=== PATIENT | female | born 1945 | race Caucasian/White ===

== ENCOUNTER → 2020-11-07 12:55 | Outpatient (CLI) | payer OTHER, SELFPAY ==
[2020-11-07 15:53] LABS: COVID19 -Nasal RAPID Negative (Negative)
== END ==
PROVIDERS: Referring Provider Physician Assistant; Visit Provider Physician Assistant
DX: Z01.812 Encounter for preprocedural laboratory examination (principal); Z20.822 Contact with and (suspected) exposure to COVID-19
CPT/HCPCS: 87635

== ENCOUNTER 2020-11-08 09:05 | Day surgery (SDC) | payer OTHER, SELFPAY ==
[2020-11-02 16:24] VITALS: BP 133/58; PULSE 73; RESP 16; TEMP 36.8; O2SAT 97
[2020-11-03 09:17] VITALS: BMI 35.9
[2020-11-08] VITALS (12 sets, daily range): BP systolic 122–150; BP diastolic 49–77; PULSE 50–79; RESP 12–22; TEMP 35.7–36.8; O2SAT 92–99; BMI 35.9
--- NOTE | 2020-11-08 06:30 | DI.RAD.S_ITS ---
PROCEDURE: XR KNEE RT 1TO2V INDICATIONS: right TKA TECHNIQUE: 2 view(s) of the knee acquired. COMPARISON: [facility], CR, XR KNEE ARTHRITIC SERIES BI, 06/09/2020, 15:42. FINDINGS: Bones: Patient is status post knee joint arthroplasty. Hardware components are in expected positions. Visualized bony structures are intact. Soft tissues: Overlying postoperative changes are noted. IMPRESSION: Expected appearance of the right total knee arthroplasty. Dictated by: Bladimir Morgan M.D. on 11/08/2020 at 16:20 Approved by: Bladimir Morgan M.D. on 11/08/2020 at 16:20
[2020-11-08] MEDS: LACTATED RINGERS 1,000 ML 42 ML IV (09:25)
[2020-11-08] MEDS: PREGABALIN 75 MG CAPSULE PO (09:26)
[2020-11-08] MEDS: CELECOXIB 200 MG CAPSULE PO (09:26)
[2020-11-08] MEDS: ACETAMINOPHEN 325 MG TABLET 975 MG PO (09:26)
[2020-11-08] MEDS: VANCOMYCIN 1,000 MG/200 ML PIGGYBACK 200 MG IV (11:01)
--- NOTE | 2020-11-08 11:28 | PM.PREOP ---
Pre-operative Note COVID-19 COVID-19 status: Negative Interval Note History & Physical reviewed/Exam performed by Physician: Yes Changes to H&P: No
--- NOTE | 2020-11-08 11:28 | PM.OP.1 ---
Operative Date/Time/Diagnoses Date of procedure: 11/08/20 Time of procedure: 11:59 Pre-op diagnosis: Right total knee arthroplasty Post-op diagnosis: same Procedure & Clinicians Procedure: Right total knee arthroplasty Same procedure as scheduled: Yes Indications: The patient has had progressively worsening right knee pain with radiographic changes consistent with arthritis. Non-operative management has failed and the patient has requested total knee replacement. The risks, benefits and alternatives to surgery were discussed with the patient prior to proceeding. Risks discussed included, but were not limited to, failure to relieve pain, stiffness, infection, nerve damage, deep venous thrombosis, pulmonary embolism, stroke, coma, heart attack, permanent paralysis and , as well as the potential need for eventual revision of the prosthetic. Surgeon: [employer] Learning Support Teacher: Dez Wilkerson Anesthesia Type: General and Spinal Operative Notes Findings: Severe right knee osteoarthritis, good stability Closure Type: primary Specimen(s): none sent Prosthetic devices, grafts, tissues, transplants, or devices: [facility] BCS 2 size 32 by 7-1/2 mm patella, size 4 tibia, size 5 femur, +9 poly Applied: drain(s) Estimated Blood Loss (mL): 250 Blood products transfused: none Tourniquet time (min): 93 Procedure in detail: The patient was seen in the pre-operative area, where the patient identified the right knee as the operative site and this was marked with my initials. The patient received pre-operative antibiotics, and was taken to the operating room and placed on the operative table in the supine position. After satisfactory anesthesia, a multimedia teacher out was performed. The right leg was encircled with a tourniquet about the proximal thigh, and the leg was prepared from the toes to the tourniquet with ChloroPrep in the usual fashion and draped through sterile drapes. The leg was elevated and exsanguinated with Eschmark bandage and the tourniquet inflated to [250] mmHg pressure. The knee was approached through an approximately 18 cm incision centered over the patella and carried into the knee through a medial parapatellar arthrotomy. A portion of the medial and lateral meniscus was resected. Soft tissue was carefully mobilized around the patella the patella was measured with a caliper. Bone was resected from the patella and the patellar height was reconstituted with up an appropriate sized patellar component. A cover was then placed on the patella. A small amount of additional medial and lateral meniscus was resected. The distal femur was cut at 5?. A [+2] cut was used. It looked like an appropriate distal femoral cut and the cut was made without difficulty. An extramedullary guide was used for the tibial cut. 10 mm was resected off the least affected side.The tibia was prepared. The rotation was assessed. The patient was placed in extension residual medial and lateral meniscus as well as any residual bone was carefully resected. [No] additional tibia was resected. Hemostasis was achieved especially posteriorly. Additional local was injected into the posterior capsule. The extension gap was assessed and additional releases for gap balancing were performed as necessary. It was checked with the gap ice rink attendant. The femoral component was trial was placed and the notch was finished. The rotation was assessed and the appropriate size femoral guide was placed on the distal femur and finishing cuts were made. There is no evidence of notching. The anterior, posterior and chamfer cuts were then made. The posterior osteophytes and soft tissues were then removed. The posterior capsule was injected with part of a mixture of 60 ml 0.25% Marcaine mixed with 20 ml Exparel for post operative pain control. The remainder of this mixture was injected into the capsule and subcutaneous tissues during cement curing. The tibial and femoral components were then placed and the knee placed through a range of motion. Range of motion was [0-130], with good stability throughout the range. The trials were then removed, and the tibia was finished. The bone was prepared with pulsatile lavage, and dried with a sponge. Cement was applied and the final prosthetics placed. Excess cement was removed during and after cement curing. A brief Betadine soak was performed. After confirming there was no extruded cement posteriorly, the final tibial insert was placed. The knee was copiously irrigated and the tourniquet deflated. Hemostasis was obtained with the bovie. A drain was placed and brought out superolaterally. The capsule was closed with interrupted nonabsorbable suture. The subcutaneous layer was closed with barbed sutures, and the skin with a running 3-0 V-Lock suture and Surgical glue. An Aquacel Ag dressing was applied and the patient was taken to recovery having tolerated the procedure well. Complications: none Post-operative Condition: stable Disposition: Acute Care Plan for aftercare: The patient will be maintained on a standard total knee replacement protocol with weight bearing as tolerated. The patient will receive aspirin and sequential compression devices for DVT prophylaxis. The patient will be discharged home when safe for the home environment.
[2020-11-08] MEDS: CEFAZOLIN 1 GM VIAL 2 GM IV (12:30)
[2020-11-08] MEDS: TRANEXAMIC ACID 1,000 MG VIAL 2000 MG INJ ×2 (12:55→14:43)
--- NOTE | 2020-11-08 13:04 | SUR.OPER ---
Supine on padded OR bed. Pillow under head, arms secured on padded armboards <90 degree abduction. Safety belt across torso. Non-operative leg secured with tape over blanket over lower leg. Operative leg secured in DeMayo/Marco A positioner. Foam padded brace at thigh of operative leg.
[2020-11-08] MEDS: BUPIVACAINE LIPOSOME 266 MG/20 ML VIAL INJ (13:11)
[2020-11-08] MEDS: SODIUM CHLORIDE IRRIG SOLUTION 250 ML, POVIDONE-IODINE SPONGE STICKS 1 APPLIC IRR (13:13)
[2020-11-08] MEDS: BUPIVACAINE 0.25% (PF) VIAL 30 ML INJ (13:14)
[2020-11-08] MEDS: EPINEPHrine 1 MG/ML SUBCUT (13:15)
[2020-11-08] MEDS: SODIUM CHLORIDE 0.9% 1,000 ML 84 ML IV (14:11)
[2020-11-08] MEDS: OXYCODONE IR 5 MG TABLET PO ×2 (15:44→16:23)
--- NOTE | 2020-11-08 15:55 | SUR.PREOP ---
Due to time constraints, this very pleasant womens procedure was reschd until 11/15 per pts request.
--- NOTE | 2020-11-08 16:40 | SUR.PHASEI ---
REPORT GIVEN TO KEN SOLIMAN RN WHO GREETED PATIENT IN RM 217 AT BEDSIDE FOR FACE TO FACE HANDOFF. ALL QUESTIONS ANSWERED TO SATISFACTION. NOTIFIED HER THAT HV DUE TO BE UNCLAMPED AT 1730. LEFT PATIENT IN STABLE CONDITION WITH BED DOWN IN LOCKED POSITION, W/ SCD'S ON, CALL LIGHT IN REACH, AND VSS.
[2020-11-08] MEDS: LOSARTAN 50 MG TABLET PO (21:16)
[2020-11-08] MEDS: ATORVASTATIN 20 MG TABLET 10 MG PO (21:17)
--- NOTE | 2020-11-08 23:34 | PC.NURSE ---
Pt stable post op course. Dsg to left knee CDI HL intact/patent. Denies discomfort at this time. Sha vac intact/patent. Satisfactory post op course. Call light w/in reach. pt calls appropriately for needs. Continue w/ plan of care.
[2020-11-09 00:30] VITALS: BP 143/68; PULSE 59; RESP 14; TEMP 36.4; O2SAT 95
[2020-11-09] MEDS: OXYCODONE IR 5 MG TABLET PO ×3 (01:53→12:38)
[2020-11-09 04:00] VITALS: BP 149/69; PULSE 51; RESP 20; TEMP 36.3; O2SAT 100
--- NOTE | 2020-11-09 07:29 | P.PN_ITS ---
Subjective Subjective Date Patient Seen: 11/09/20 Time Patient Seen: 07:29 Interval history: She notes she is doing well and has minimal pain. She has been up to the bathroom a few times with nursing staff. Her pain is well controlled with pain medications. Exam Vital Signs (past 8 hours): - 11/09/20 00:30 11/09/20 04:00 Temperature 97.5 F L 97.4 F L Pulse Rate 59 L 51 L Respiratory Rate 14 20 Blood Pressure 143/68 H 149/69 H Pulse Oximetry 95 100 Oxygen Delivery Method Room Air Oxygen Flow Rate 0 Narrative Exam Narrative: Alert and oriented, able to do an active straight leg raise, calfs are soft bilaterally, minimal pain with gentle range of motion in her knee, her leg is neurologically intact distally. 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 Were going to mobilize her with physical therapy today. Take her Truong wrap off and discontinue her drain. She can be discharged to home today.
[2020-11-09 08:00] VITALS: BP 136/63; PULSE 50; RESP 14; TEMP 36.4; O2SAT 99
[2020-11-09] MEDS: hydroCHLOROthiazide 25 MG TABLET PO (10:01)
[2020-11-09] MEDS: CEFAZOLIN 1 GM VIAL 2 GM IV (10:01)
[2020-11-09] MEDS: MELOXICAM 7.5 MG TABLET 15 MG PO (10:01)
[2020-11-09] MEDS: AMLODIPINE 5 MG TABLET PO (10:20)
--- NOTE | 2020-11-09 10:45 | PT.IIE ---
Current Diagnoses Unilateral primary osteoarthritis, right knee (11/08/20) Surgery Performed Operation Date: 11/08/20 11:15 Actual Procedures p Total Knee Arthroplasty(Right) - Sharon Alicea MD Surgical History (Last Updated 11/03/20 @ 09:11 by Nancy Katz, RN) History of lumbar fusion (~2010) Hx of bilateral cataract extraction (05/2020) Medical History (Last Updated 11/03/20 @ 09:11 by Nancy Katz, RN) Anxiety HLD (hyperlipidemia) HTN (hypertension) CHANDLER on CPAP Osteoarthritis Pre-diabetes RLS (restless legs syndrome) Vertigo Physical Therapy Inpatient Evaluation/Re-Eval M1 PT/OT-IP Prior Functional Status Start: 11/09/20 13:07 Freq: NEEDED Status: Active Protocol: Document 11/09/20 10:45 DLM (Rec: 11/09/20 13:20 DLM [id number]) Medical Review Prior Functional Status Medical History Reviewed Yes Diet/Fluid Consistency Regular Communication WNL Mobility and Gait Independent without device Activities of Daily Living and IADL's Independent Prior Functional Level (Other details) plans to have friend stay with her over-night to help after discharge Social History Household Members none Living Arrangements Apartment/Condo Number of Floors (Floors) One Floor Number of Stairs To Enter/Railing? elevator to her condo on second floor Home Environment High Toilet,Walk in Shower Home Equipment Four Wheel Walker Employment Status Retired M2 PT-IP Current Condition Start: 11/09/20 13:07 Freq: NEEDED Status: Active Protocol: Document 11/09/20 10:45 DLM (Rec: 11/09/20 13:20 DLM [id number]) Physical Therapy Current Condition Current Condition Evaluation Date 11/09/20 Treatment Diagnosis right TKA, impaired gait and mobility Onset Date 11/08/20 Weight Bearing Status Weight Bearing Status Weight Bear as Tolerated M3 PT-IP Subjective Start: 11/09/20 13:07 Freq: NEEDED Status: Active Protocol: Document 11/09/20 10:45 DLM (Rec: 11/09/20 13:20 DLM [id number]) Subjective Physical Therapy Visit Type Type Initial Evaluation Visit Start Time 09:45 Visit Stop Time 10:45 Total Visit Minutes 60 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 Patient Goals Discharge home today Therapy Pain Assessment Pain When Pain Assessed After Treatment Pain Present Pain Present Pain Reported Location right knee Intensity 4 Scale Used Numeric (0 - 10) Description With Movement Pain Behaviors Wincing Pain Management Techniques Apply Cold,Elevation,Timing of Activity with Medications M4 PT-IP Mobility and Gait Start: 11/09/20 13:07 Freq: NEEDED Status: Active Protocol: Document 11/09/20 10:45 DLM (Rec: 11/09/20 13:20 DLM [id number]) PT-Bed Mobility Assessment Supine to Sit Supine to Sit Independent Sit to Supine Sit to Supine Independent Scooting Scooting to Edge of Bed Independent Scooting Up and Down in Bed Independent PT-Transfer Assessment Sit to and From Stand Sit to and from Stand Independent,Use of Upper Extremities Equipment Transfer Assistive Device Gait Belt,Front Wheeled Walker Transfers Transfer Destination Bed,Chair Transfer Technique Stand Step Pivot Transfer Ability Level of Assist Independent,Use of Upper Extremities Comments Mobility Comments pt left up in recliner this visit, she has been up to toilet with nursing earlier today Gait Assessment Gait Gait Assistance Required: Independent Distance (Feet) 70 Able to Maintain Weight Bearing Status Yes During Gait Assistive Devices Assistive Device Gait Belt,Front Wheeled Walker Gait Deviations General Gait Pattern Antalgic Factors Limiting Gait Function Factors Limiting Gait Function Decreased Activity Tolerance, Decreased Strength,Limited Range of Motion,Pain Comments Gait Comments After training pt shows safe gait pattern with FWW Stair Climbing Assessment Comments Stair Climbing Comments pt has no steps at home PT-Balance Assessment Sitting Balance and Reactions Static Sitting Balance Ability Normal Dynamic Sitting Balance Ability Normal Standing Balance and Reactions Static Standing Balance Ability Good Dynamic Standing Balance Ability Good Device Used FWW M5 PT-IP Objective Assessments Start: 11/09/20 13:07 Freq: NEEDED Status: Active Protocol: Document 11/09/20 10:45 DLM (Rec: 11/09/20 13:20 DLM [id number]) Orientation Orientation/Cognition Level of Alertness Alert Orientation Name,Age,Birthday,Month,Date, Year,Day of Week,Place, Situation Language Function Ability No Deficits Noted Safety Awareness Understands Safety Issues Memory Description No Deficits Noted Comments she reports she had PT training before surgery in out -pt Gross Range of Motion Upper Extremity ROM Assessment Within Functional Limits Lower Extremity ROM Assessment Right Impaired Impairments 0-95 degrees right knee AROM Strength Upper Extremity Strength Assessment Within Functional Limits Lower Extremity Strength Assessment Right Impaired Hip able to do straight leg raise with mild ext lag Knee ext 3-/5 Ankle DF 4+/5 Comments Strength Comments pain limits functional strength right knee post-op Coordination Assessment Gross Coordination Gross Coordination WNL Sensation Assessment Sensation Gross Sensation WNL Muscle Tone Muscle Tone WNL Yes M6 PT-IP Treatment Start: 11/09/20 13:07 Freq: NEEDED Status: Active Protocol: Document 11/09/20 10:45 DLM (Rec: 11/09/20 13:20 DLM [id number]) Physical Therapy Treatment Exercises Exercises Ankle Pumps,Quad Sets,Heel Slides,Straight Leg Raises, Short Arc Quads,Passive Knee Extension Hang,Seated Knee Flexion/Extension Education Education Provided Weight Bearing Status,Post-Op Packet,Safety M7 PT-IP Assessment and Plan Start: 11/09/20 13:07 Freq: NEEDED Status: Active Protocol: Document 11/09/20 10:45 DLM (Rec: 11/09/20 13:20 DLM [id number]) PT Summary Assessment and Plan Potential Rehabilitation Potential Excellent Status of Condition at Evaluation Evolving Summary Impairments Pain,ROM,Strength,Balance,Bed Mobility,Transfers,Gait, Activity Tolerance Progress Towards Goals Safe For Discharge,Goals Met Assessment Summary Yudy is alert and eager to go home today. She is progressing well today POD #1. She tolerates gait with the FWW well but prefers to stay in her room. She was educated in post-op safety issues and HEP. After training she demonstrates independent gait with the FWW. Answered her questions. She appears safe to discharge home when cleared medically. Goals Bed Mobility Goal Independent Transfer Goal Independent Gait Goal Independent,Front Wheel Walker Days to Meet Goals 1 Frequency of Treatment Frequency Of Treatment Discharge Recommendations To Nursing Amount of Assist Needed Standby Assistance Discharge Recommendations PT Discharge Recommendations Home with Assistance, Outpatient PT Other Discharge Recommendations friend plans to assist her at home as needed Transportation Needs at Discharge Private Vehicle
--- NOTE | 2020-11-09 10:45 | CM.DANOTE ---
DCP: Case received, EMR reviewed and met with patient. Introduced self and role. Was able to obtain information from patient regarding her baseline activity status prior to hospitalization, as well as her current living situation. DCP assessment completed with information currently available. Patient is a 75 year old female who admitted yesterday morning to the care of the orthopedic team. PCP: Dr. Bales. Payer: confirmed: [facility]. Patient came to the hospital for a surgical procedure. She had a right total knee arthroplasty. Patient has history of osteoarthritis of her knee, resulting with chronic knee pain. Met with patient in her room. She is pleasant, alert and oriented, was sitting up in bed. Confirmed with patient that she resides in [facility] [place] in a condo. She lives alone. She is independent at her baseline, and has not had to use any DME prior to surgery. She has an elevator that takes her up to her condo. Her friend, Jailene, will be picking her up, and her other friend, Helene, will be staying over night with her. She is set up for outpatient P.T. at [facility]. P: Patient will be discharged home today, with support of friends. Era Chacon RN/Welding Instructor
[2020-11-09 11:43] VITALS: O2SAT 95
--- NOTE | 2020-11-09 14:18 | PC.NURSE ---
Discharge: Pt feels ready to d/c home. Seen by PT and given their instructions. Seen by MD and she was given d/c instructions. Vds w/out diff. Tolerates diet w/out problems. Po pain meds effective for pain. Truong wrap removed from knee and does have some knee swelling. Hemovac d/c intact. Reviewed d/c packet, given rx. Pt has a [place] of friends and will be staying with a friend for a couple of nights. Questions answered. Pt d/c home via auto w/friend.
== END 2020-11-09 12:50 | disposition home or self-care (01) ==
LOC: OR 09:09 → AC 09:15
PROVIDERS: PCP Family Medicine; Referring Provider Orthopaedic Surgery; Visit Provider Orthopaedic Surgery
PROC: 0SRC0JZ Replacement of Right Knee Joint with Synthetic Substitute, Open Approach (ICD-10-PCS; CPT 27447; principal; 2020-11-08 11:15)
DX: M17.11 Unilateral primary osteoarthritis, right knee (principal); I10 Essential (primary) hypertension; G47.33 Obstructive sleep apnea (adult) (pediatric)
CPT/HCPCS: 27447; 73560; 94762; 97110; 97162; 97530; C1776; C9290; J0171; J0690; J1100; J2250; J2274; J2405; J2704; J3010